=== PATIENT | male | born 1935 | race Caucasian/White ===

== ENCOUNTER 2017-01-12 09:29 | Outpatient (CLI) | payer MEDICARE, OTHER | END 2017-01-12 09:30 | disposition critical access hospital (66) | DX: I10 Essential (primary) hypertension (principal) | CPT/HCPCS: A0425; A0429 ==

== ENCOUNTER 2017-01-12 09:54 | Emergency (ER) | payer MEDICARE, OTHER | END 2017-01-12 11:59 | disposition home or self-care (01) | DX: I11.0 Hypertensive heart disease with heart failure (principal); I50.9 Heart failure, unspecified; E86.0 Dehydration; R01.1 Cardiac murmur, unspecified; Z79.01 Long term (current) use of anticoagulants; Z79.82 Long term (current) use of aspirin ==